=== PATIENT | male | born 1950 | race Caucasian/White ===

== ENCOUNTER 2019-11-14 13:03 | Emergency (ER) | payer OTHER, SELFPAY ==
[2019-11-14 13:11] VITALS: BP 178/90; PULSE 68; RESP 18; TEMP 36.8; O2SAT 98; BMI 30.4
--- NOTE | 2019-11-14 13:36 | ED_ITS ---
HPI - Skin/Abscess/Foreign Bdy General: Chief complaint: General Medical Stated complaint: tick bite Time Seen by Provider: 11/14/19 13:18 Source: patient and family Mode of arrival: ambulatory Limitations: no limitations History of Present Illness: HPI narrative: Patient is a 69-year-old male who presents to ED today with complaints of a tick bite to his left axillary region that he noticed yesterday. Patient states he pulled a tick off that he believes was only attached for a few hours. Patient is concerned because area is red and swollen. He has not been running fevers, chills, body aches, abdominal pain, nausea, vomiting, no rash noted, no headache. MD complaint: insect bite/sting Onset (ago): hour(s) Tetanus up to date: yes Location: LUE (L axilla) Associated symptoms: Deny chills, fever(s), nausea or vomiting Review of Systems Const: Denies: fever(s), chills, body aches, change in appetite, change in weight, fatigue, malaise or night sweats Card: Denies: chest pain Resp: Denies: dyspnea GI: Denies: abdominal pain, nausea, vomiting or diarrhea Musc: Reports: extremity swelling (swelling under L axilla); Denies: neck pain, back pain, extremity pain, joint pain, joint swelling, joint redness, joint warmth, joint stiffness, limited range of motion or muscle weakness Skin/Breast: Reports: new lesions (tick bite); Denies: skin pain Neuro: Denies: headache(s), numbness in extremities, weakness in extremities or sensory changes [facility] ED PFSH: Social History Smoking and tobacco status: never smoked Physical Exam Const: COMMON NORMALS: no acute distress, patient oriented x3, no limitations and alert Neck/C-Spine: COMMON NORMALS: full ROM, no lymphadenopathy and no meningeal signs Lymph: LYMPHATIC: no lymphadenopathy noted Extremity: COMMON NORMALS: normal to inspection and full ROM GENERAL: Yes normal exam except as noted Neuro: COMMON NORMALS: patient oriented x3 SENSORIUM/ORIENTATION: Yes alert MENINGEAL SIGNS: Yes no meningeal signs Skin: OTHER: pt has golf ball sized swelling under L axilla; there is no induration or fluctuance to suggest abscess at this time; swollen area seems to be just soft tissues at this time; no obvious lymphadenopathy; area is very mildly erythematous; there is no central clearing; no rash present around lesion to to body Course Vital Signs: Vital signs: Vital Signs Temperature 98.2 F 11/14/19 13:11 Pulse Rate 68 11/14/19 13:11 Respiratory Rate 18 11/14/19 13:11 Blood Pressure 178/90 11/14/19 13:11 Pulse Oximetry 98 11/14/19 13:11 MDM - Skin/Abscess/Foreign Bdy MDM Narrative: Medical decision making narrative: will have tick panel sent out and go ahead and start on doxy Lab Data: Labs: Lab Results 11/14/19 11/14/19 Range/Units 14:20 14:20 WBC 7.1 (4.0-10.0) 10^3/ uL RBC 4.91 (4.1-5.3) 10^6/u L Hgb 14.3 (11.7-16.6) g/dL Hct 44.4 (42.0-52.0) % MCV 90.4 (80-94) fL MCH 29.1 (28.0-34.0) pg MCHC 32.2 (30.0-36.0) g/dL RDW 14.2 (12.1-15.1) % Plt Count 230 (130-400) 10^3/c mm MPV 10.0 (7.4-10.4) fL Neut % (Auto) 56.3 % Lymph % (Auto) 29.4 % [place] % (Auto) 9.2 % Eos % (Auto) 4.7 % Baso % (Auto) 0.3 % Neut # (Auto) 4.0 (1.8-7.7) 10^3/u L Lymph # (Auto) 2.1 (0.8-4.8) 10^3/u L [place] # (Auto) 0.7 (0.2-0.9) 10^3/u L Eos # (Auto) 0.3 (0.0-0.8) 10^3/u L Baso # (Auto) 0.0 (0.0-0.1) 10^3/u L Nucleated RBC % (a uto) 0 % Nucleated RBCs # 0.0 /100WBC Sodium 138 (136-145) mmol/L Potassium 4.5 (3.5-5.1) mmol/L Chloride 103 (98-107) mmol/L Carbon Dioxide 25 (22-29) mmol/L Anion Gap 14.5 (5-19) BUN 22 (8-23) mg/dL Creatinine 1.0 (0.7-1.2) mg/dL GFR Calculation 74.3 L (90-130) mL/min Glucose 94 (65-115) mg/dL Calculated Osmolal ity 282 L (285-295) mOsm/k g Calcium 9.4 (8.5-10.5) mg/dL Total Bilirubin 0.4 (0.15-1.2) mg/dL AST 23 (0-40) U/L ALT 20 (0-41) U/L Alkaline Phosphata se 54 (40-130) IU/L Total Protein 7.3 (6.6-8.7) g/dL Albumin 4.5 (3.5-5.2) g/dL Globulin 2.8 (1.3-4.6) g/dL Discharge Plan Discharge Patient Disposition: Home, Self-Care Clinical Impression: Tick bite of left axillary region Qualifiers: Encounter type: initial encounter Qualified Code(s): S40.862A - Insect bite (nonvenomous) of left upper arm, initial encounter Condition: Stable Prescriptions: New doxycycline monohydrate 100 mg tablet 100 mg PO BID 10 Days Qty: 20 RF: 0 No Action losartan 50 mg Tablet 50 mg PO DAILY RF: 0 aspirin 325 mg Tablet 325 mg PO PRN PRN (Reason: Pain) RF: 0 Discharge Orders: Discharge Order (Routine); Ordered 11/14/19 Ordered By: Coco Tiwari Referrals: [facility] [Primary Care Provider] - Patient Instructions: Tick Bite (ED) Activity Restrictions/Additional Instructions: Your tick panel as we discussed is a send out test-you should be contacted for any positive results. The antibiotics given to you today will cover for tick illness as well as other skin infections. Please seek re-evaluation if lesion continues to worsen despite 48+ hours of antibiotic therapy. You may seek re- evaluation sooner for fevers, feeling ill, or any other concerns you may have. Coding Level of Care Code ED Analytics Leader for [employer] Fwd Exam Expanded Problem Focused
[2019-11-14 14:33] LABS: Basophils % 0.3 %; Eosinophils # 0.3 10^3/uL (0.0-0.8); Eosinophils % 4.7 %; Hematocrit 44.4 % (42.0-52.0); Hemoglobin 14.3 g/dL (11.7-16.6); Lymphocytes # 2.1 10^3/uL (0.8-4.8); Lymphocytes % 29.4 %; Mean Corpuscular HGB Conc 32.2 g/dL (30.0-36.0); Mean Corpuscular Hemoglobin 29.1 pg (28.0-34.0); Mean Corpuscular Volume 90.4 fL (80-94); Monocytes # 0.7 10^3/uL (0.2-0.9); Monocytes % 9.2 %; Neutrophils % 56.3 %; Nucleated Red Blood Cells % 0 %; Platelet Count 230 10^3/cmm (130-400); Red Blood Count 4.91 10^6/uL (4.1-5.3); Red Cell Distribution Width 14.2 % (12.1-15.1); White Blood Count 7.1 10^3/uL (4.0-10.0)
[2019-11-14 14:50] LABS: Alanine Aminotransferase 20 U/L (0-41); Albumin Level 4.5 g/dL (3.5-5.2); Alkaline Phosphatase 54 IU/L (40-130); Anion Gap 14.5 (5-19); Aspartate Amino Transferase 23 U/L (0-40); Blood Urea Nitrogen 22 mg/dL (8-23); Calcium 9.4 mg/dL (8.5-10.5); Carbon Dioxide 25 mmol/L (22-29); Chloride 103 mmol/L (98-107); Creatinine Clr Calc Pharmacy 77.3272; Globulin 2.8 g/dL (1.3-4.6); Glomerular Filtration Rate 74.3 mL/min (90-130); Glucose 94 mg/dL (65-115); Osmolality Calculated 282 mOsm/kg (285-295); Potassium 4.5 mmol/L (3.5-5.1); Sodium 138 mmol/L (136-145); Total Bilirubin 0.4 mg/dL (0.15-1.2); Total Protein 7.3 g/dL (6.6-8.7)
[2019-11-14 15:17] VITALS: BP 171/86; PULSE 64; RESP 18; O2SAT 98
== END 2019-11-14 15:19 | disposition home or self-care (01) ==
PROVIDERS: Emergency Provider Physician Assistant
DX: S40.862A Insect bite (nonvenomous) of left upper arm, initial encounter (principal); W57.XXXA Bitten or stung by nonvenomous insect and other nonvenomous arthropods, initial encounter; Z79.82 Long term (current) use of aspirin
CPT/HCPCS: 12345; 36415; 80053; 85025; 86618; 86666; 86757; 99281; 99282